=== PATIENT | female | born 1965 | race Caucasian/White ===

== ENCOUNTER 2025-05-30 07:25 | Day surgery (SDC) | payer BC ==
[~2025-05-30] VITALS: Ht 175.3 cm; Wt 66.3 kg
[~2025-05-30 07:25] MED LIST: IBUP600; NAPR250; PHENTERMINE
[2025-05-30] MEDS ORDERED: DOTTI1 EA18 (07:42)
[2025-05-30] MEDS ORDERED: PROG100 (07:43)
[2025-05-30] MEDS ORDERED: Metoclopramide HCl 5MG / ML 2ML Vial ONE (08:38)
--- NOTE | 2025-05-30 09:17 | NUR ---
05/30/25 0917 Zach Leija SEDATION START DELAYED DUE TO COMPUTER ERROR.
--- NOTE | 2025-05-30 09:42 | NUR ---
05/30/25 0942 Asya Doe 0930: AFTER ASSESSMENT PATIENT NOW REPORTS SOME "LITTLE SORENESS" TO LOWER ABDOMEN, BUT STATES IT IS TOLERABLE. ABDOMEN IS SOFT WHEN PALPATED BY RN. DR DIOP IN ROOM AND PATIENT REPORTS THIS TO HIM. PER DR DIOP IT IS LIKELY GAS PAINS. RN ENCOURAGES PATIENT TO PASS GAS AND STATES THAT MOVING AROUND, WALKING SHOULD HELP BUT TO BE CAREFUL SHE CAN BE OFF BALANCE TODAY FROM THE MEDICINE FROM THE PROCEDURE. PATIENT VERBALIZED UNDERSTANDING. RN EXPLAINED IN DISCHARGE INSTRUCTIONS TO CALL DR DIOP'S OFFICE IF HAS PAIN NOT RELIEVED BY MEDICATION.
[2025-05-30 09:46] VITALS: BP 108/65
== END 2025-05-30 09:47 | disposition home or self-care (01) ==
LOC: ORSCSDS 07:25
PROVIDERS: Surgery
PROC: 0DJD8ZZ Inspection of Lower Intestinal Tract, Via Natural or Artificial Opening Endoscopic (ICD-10-PCS; principal; 2025-05-30 08:45)
DX: Z12.11 Encounter for screening for malignant neoplasm of colon (principal); Z79.899 Other long term (current) drug therapy
CPT/HCPCS: J2704; J2765; J7120

== ENCOUNTER → 2025-09-21 | Outpatient (CLI) | payer BC ==
[~2025-09-21] MED LIST changes: +DOTTI1 EA18; +PROG100
== END ==
LOC: LAB SHORT 13:20 → LAB 13:20 → LAB SHORT 09-22 12:48
PROVIDERS: Family Medicine
DX: Z01.419 Encounter for gynecological examination (general) (routine) without abnormal findings (principal)
CPT/HCPCS: 87624; G0145